=== PATIENT | male | born 1975 | race Caucasian/White ===

== ENCOUNTER 2017-11-30 03:04 | Emergency (ER) | payer BC ==
[2017-11-30] MEDS ORDERED: HYDROmorphone 1 MG/ML Syringe IVPUSH ONE (04:16)
--- NOTE | 2017-11-30 04:20 | EDM.PDOC ---
ED HPI GENERAL MEDICAL PROBLEM - General Chief Complaint: Back Pain or Injury Stated Complaint: [facility] Time Seen by Provider: 11/30/17 03:44 Source of Information: Reports: Patient, Family History Limitations: Reports: No Limitations - History of Present Illness INITIAL COMMENTS - FREE TEXT/NARRATIVE: This is a 42-year-old male. On of this week he had fusion of his L5-S1 vertebrae. This was in [place] I believe. They sent him home on Percocet and Zanaflex. He apparently was doing okay over the last few days though he would get spasms in his legs but the medicine seemed to help with that. Tonight apparently he started having spasms in his lower back that was on touched by the Percocet in the Zanaflex. He called the ambulance and he was brought here to the ER for evaluation. He states the pain in his legs is better after the surgery but now is having these were normal spasms across his lower back. He denies any further injury he's been very careful at home using a walker and not overextending himself. Lower Back Pain Score (Numeric/FACES): 10 - Related Data Allergies Allergy/AdvReac Type Severity Reaction Status Date / Time No Known Allergies Allergy Verified 11/30/17 03:22 Home Meds: Home Meds ALPRAZolam [Xanax] 1 tab PO BID PRN 11/30/17 [History] Diazepam [Valium] 5 mg PO TID PRN #15 tab 11/30/17 [Rx] FLUoxetine HCl [Prozac] 1 cap PO DAILY 11/30/17 [History] Pantoprazole [ProTONIX] 40 mg PO DAILY 11/30/17 [History] Sennosides [Natural Laxative] 8.6 mg PO BID PRN 11/30/17 [History] oxyCODONE 5 mg PO Q4HR PRN MDD 15 11/30/17 [History] tiZANidine [Zanaflex] 2 mg PO Q8HR PRN 11/30/17 [History] Past Medical History Musculoskeletal History: Reports: Back Pain, Chronic Endocrine/Metabolic History: Reports: Diabetes, Type II Other Endocrine/Metabolic History: hx of diabetes, states he no longer has diabetes - Past Surgical History Musculoskeletal Surgical History: Reports: Other (See Below) Other Musculoskeletal Surgeries/Procedures:: back fusion 11/27/17 Social & Family History - Tobacco Use Smoking Status *Q: Never Smoker - Caffeine Use Caffeine Use: Reports: None - Recreational Drug Use Recreational Drug Use: No ED ROS GENERAL - Review of Systems Review Of Systems: See Below Constitutional: Denies: Fever, Chills HEENT: Reports: No Symptoms Respiratory: Reports: No Symptoms Cardiovascular: Reports: No Symptoms Endocrine: Reports: No Symptoms GI/Abdominal: Reports: No Symptoms : Reports: No Symptoms Musculoskeletal: Reports: Other (As per history of present illness) Skin: Reports: No Symptoms Neurological: Reports: No Symptoms Psychiatric: Reports: No Symptoms Hematologic/Lymphatic: Reports: No Symptoms ED EXAM,LOWER BACK PAIN/INJURY - Physical Exam Exam: See Below Exam Limited By: No Limitations General Appearance: Alert, WD/WN, Moderate Distress Eye Exam: Bilateral Eye: Normal Inspection Ears: Normal External Exam Nose: Normal Inspection Throat/Mouth: Normal Inspection, Normal Lips, Normal Voice, No Airway Compromise Head: Normocephalic Neck: Supple Respiratory/Chest: No Respiratory Distress, Lungs Clear, Normal Breath Sounds Cardiovascular: Regular Rate, Rhythm GI/Abdominal: Soft, Non-Tender Back Exam: Other (The incision in his back looks clean there is no evidence of infection or swelling, the spasms appear to be across the lower back area in the paraspinal muscles as well of the lower lumbar region, they come and go) Extremities: Normal Inspection Neurological: Alert, Normal Mood/Affect Psychiatric: Anxious Skin Exam: Warm, Dry Course - Vital Signs Last Recorded V/S: Last Vital Signs Temp 98.3 F 11/30/17 03:10 Pulse 101 H 11/30/17 03:10 Resp 23 H 11/30/17 03:10 BP 130/91 H 11/30/17 03:10 Pulse Ox 97 11/30/17 03:10 - Orders/Labs/Meds Meds: Medications Discontinued Medications Generic Name Dose Route Start Last Admin Trade Name Reji PRN Reason Stop Dose Admin Diazepam 5 mg 11/30/17 04:17 11/30/17 04:27 Valium IVPUSH 11/30/17 04:18 5 mg ONETIME ONE Administration Hydromorphone HCl 1 mg 11/30/17 04:16 11/30/17 04:25 Dilaudid IVPUSH 11/30/17 04:17 1 mg ONETIME ONE Administration - Re-Assessments/Exams Free Text/Narrative Re-Assessment/Exam: 11/30/17 06:41 Patient's spasms has resolved completely he is laying comfortably on his back and he wants to go home. I will provide a prescription for Valium for his muscle spasms. Departure - Departure Time of Disposition: 06:41 Disposition: Home, Self-Care 01 Condition: Fair Clinical Impression: Postoperative back pain, Lumbar paraspinal muscle spasm, Status post lumbar spinal fusion - Discharge Information Prescriptions: Diazepam [Valium] 5 mg PO TID PRN #15 tab PRN Reason: Spasms Referrals: PCP,None [Primary Care Provider] - Forms: ED Department Discharge Additional Instructions: Continue with your pain medication as prescribed, take the Valium now instead of the muscle relaxer to help with the muscle spasms, if the spasms are real severe you can take 2 tablets at a time but will make you very sleepy so be careful, follow-up with your back surgeon as scheduled, return to the ER if needed
== END 2017-11-30 07:00 | disposition home or self-care (01) ==
LOC: JD.ED 03:04
DX: G89.18 Other acute postprocedural pain (principal); M54.5 Low back pain; E11.9 Type 2 diabetes mellitus without complications; Z79.899 Other long term (current) drug therapy; Z98.1 Arthrodesis status
CPT/HCPCS: 96374; 96375; 99284; J1170; J3360